=== PATIENT | female | born 1975 | race African-American/Black ===

== ENCOUNTER → 2017-08-01 | Outpatient (CLI) | payer SELFPAY ==
[2017-08-01 19:19] LABS: ABSOLUTE LYMPHOCYTES (AUTO) 3.5 10^3/uL (0.5-4.7); ABSOLUTE MONOCYTES (AUTO) 0.5 10^3/uL (0.1-1.4); ABSOLUTE NEUT (AUTO) 1.7 10^3/uL (1.7-8.2); BASOPHILS % (AUTO) 0.7 % (0-2); EOSINOPHILS % (AUTO) 0.3 % (0-6); HEMATOCRIT 31.4 % (36.0-47.0); HEMOGLOBIN 10.8 g/dL (12.0-15.5); LYMPHOCYTES % (AUTO) 60.4 % (13-45); MEAN CORPUSCULAR HEMOGLOBIN 22.9 pg (27.0-33.4); MEAN CORPUSCULAR HGB CONC 34.3 g/dL (32.0-36.0); MEAN CORPUSCULAR VOLUME 67 fl (80-97); MONOCYTES % (AUTO) 9.5 % (3-13); RED BLOOD COUNT 4.71 10^6/uL (3.72-5.28); RED CELL DISTRIBUTION WIDTH 17.9 % (11.5-14.0); SEGMENTED NEUTROPHILS % (AUTO) 29.1 % (42-78); WHITE BLOOD COUNT 5.7 10^3/uL (4.0-10.5)
== END ==
LOC: LAB 18:57
PROVIDERS: ATTEND Nurse Practitioner Acute Care
DX: R05 Cough (principal); Z86.2 Personal history of diseases of the blood and blood-forming organs and certain disorders involving the immune mechanism
CPT/HCPCS: 36415; 85025

== ENCOUNTER 2018-01-13 11:44 | Inpatient (IN) | payer SELFPAY ==
--- NOTE | 2018-01-13 13:40 | ER Document Report ---
ED Medical Screen (RME) - General Chief Complaint: Shortness Of Breath Stated Complaint: COUGH/CONGESTION Time Seen by Provider: 01/13/18 13:36 TRAVEL OUTSIDE OF THE [place] IN LAST 30 DAYS: No - HPI Notes: 01/13/18 13:37 Patient is a 42-year-old female with a history of asthma who presents to the ED complaining of a cough for 6 months, shortness of breath for 3 months, and bilateral lower extremity swelling 1 month. Patient states that she has been seen by an word processing specialist who had her on different inhalers with minimal relief. Patient states that she is scheduled to see a network intern on February 05 locally, but does not want to wait that long. Patient is not currently on any fluid pills. She is not on any blood thinners. She denies any smoking, IV drug use, prolonged immobilization, previous DVT/PE, or other significant cardiac history. Denies any headache, fever, neck pain, URI, sore throat, chest pain, palpitations, syncope, abdominal pain, nausea/vomiting/diarrhea, urinary retention, dysuria, hematuria, loss of control of bowel or bladder, numbness/tingling, saddle anesthesia, muscle paralysis/weakness, or rash. I have treated and performed a rapid initial assessment of this patient. A comprehensive ED assessment and evaluation of the patient, analysis of test results and completion of medical decision making process will be conducted by additional ED providers. PHYSICAL EXAMINATION: GENERAL: Well-appearing, well-nourished and in no acute distress. A&Ox4. Answers questions appropriately. LUNGS: Breath sounds clear to auscultation bilaterally and equal. No wheezes rales or rhonchi. HEART: Regular rate and rhythm without murmurs, rubs, gallops. Extremities: 1-2+ pitting edema b/l NEUROLOGICAL: Normal speech, normal gait. PSYCH: Normal mood, normal affect. - Related Data Allergies/Adverse Reactions: amoxicillin Allergy (Verified 01/13/18 11:48) Past Medical History - Social History Chew tobacco use (# tins/day): No Frequency of alcohol use: None Drug Abuse: None Pulmonary Medical History: Reports: Hx Asthma, Hx Bronchitis Renal/ Medical History: Denies: Hx Peritoneal Dialysis Physical Exam - Vital signs Vitals: Temp Pulse Resp BP Pulse Ox 98.1 F 129 H 15 116/90 H 100 01/13/18 11:58 01/13/18 11:58 01/13/18 11:58 01/13/18 11:58 01/13/18 11:58 Course - Vital Signs Vital signs: Temp Pulse Resp BP Pulse Ox 98.1 F 129 H 15 116/90 H 100 01/13/18 11:58 01/13/18 11:58 01/13/18 11:58 01/13/18 11:58 01/13/18 11:58
[2018-01-13 14:20] LABS: ABSOLUTE LYMPHOCYTES (AUTO) 1.9 10^3/uL (0.5-4.7); ABSOLUTE MONOCYTES (AUTO) 0.3 10^3/uL (0.1-1.4); ABSOLUTE NEUT (AUTO) 3.9 10^3/uL (1.7-8.2); BASOPHILS % (AUTO) 0.7 % (0-2); HEMATOCRIT 35.7 % (36.0-47.0); HEMOGLOBIN 11.2 g/dL (12.0-15.5); MEAN CORPUSCULAR HEMOGLOBIN 21.1 pg (27.0-33.4); MEAN CORPUSCULAR HGB CONC 31.5 g/dL (32.0-36.0); MEAN CORPUSCULAR VOLUME 67 fl (80-97); MONOCYTES % (AUTO) 5.6 % (3-13); RED BLOOD COUNT 5.34 10^6/uL (3.72-5.28); RED CELL DISTRIBUTION WIDTH 18.9 % (11.5-14.0); SEGMENTED NEUTROPHILS % (AUTO) 62.7 % (42-78); TOTAL CELLS COUNTED % (AUTO) 100 %; WHITE BLOOD COUNT 6.3 10^3/uL (4.0-10.5)
[2018-01-13 14:31] LABS: ALANINE AMINOTRANSFERASE 87 U/L (9-52); ALKALINE PHOSPHATASE 60 U/L (38-126); ANION GAP 11 (5-19); ASPARTATE AMINO TRANSFERASE 117 U/L (14-36); BILIRUBIN,DIRECT 0.8 mg/dL (0.0-0.4); BILIRUBIN,TOTAL 3.6 mg/dL (0.2-1.3); BLOOD UREA NITROGEN 32 mg/dL (7-20); CALCIUM 8.6 mg/dL (8.4-10.2); CARBON DIOXIDE 17 mmol/L (22-30); CHLORIDE 112 mmol/L (98-107); CREATINE KINASE 194 U/L (30-135); GLUCOSE 131 mg/dL (75-110); POTASSIUM 4.6 mmol/L (3.6-5.0); TOTAL PROTEIN 7.4 g/dL (6.3-8.2)
[2018-01-13 14:43] LABS: CREATINE KINASE MB 1.86 ng/mL (<4.55); TROPONIN I 0.031 ng/mL
[2018-01-13 14:50] LABS: PLATELET COUNT 116 10^3/uL (150-450)
--- NOTE | 2018-01-13 15:04 | RADIOLOGY REPORT (SQ) ---
EXAM DESCRIPTION: CHEST PA/LAT COMPLETED DATE/TIME: 01/13/2018 2:50 pm REASON FOR STUDY: sob COMPARISON: None. NUMBER OF VIEWS: Two view. TECHNIQUE: Frontal and lateral radiographic views of the chest acquired. LIMITATIONS: None. FINDINGS: LUNGS AND PLEURA: No opacities, masses or pneumothorax. No pleural effusion. MEDIASTINUM AND HILAR STRUCTURES: No masses. No contour abnormalities. HEART AND VASCULAR STRUCTURES: Heart enlarged without failure. Prominence of the pulmonary artery. Aorta normal for age. BONES: No acute findings. HARDWARE: None in the chest. OTHER: No other significant finding. IMPRESSION: CARDIAC ENLARGEMENT WITHOUT FAILURE. PROMINENCE OF THE MAIN PULMONARY ARTERY. THIS CAN BE SEEN WITH PULMONARY VALVE DISEASE. TECHNICAL DOCUMENTATION: JOB ID: [id number] [employer]- All Rights Reserved Reading location - IP/workstation name: [email or web address]
--- NOTE | 2018-01-13 16:39 | ER Document Report ---
ED General - General TRAVEL OUTSIDE OF THE [place] IN LAST 30 DAYS: No <NEHA HIGGINS - Last Filed: 01/13/18 19:03> <TONO DOWNEY - Last Filed: 01/13/18 21:32> <JUSTIN CM - Last Filed: 01/15/18 04:04> - General Chief Complaint: Shortness Of Breath Stated Complaint: COUGH/CONGESTION Time Seen by Provider: 01/13/18 13:36 - HPI Notes: Patient is a 42-year-old female with a history of asthma & GERD who presents to the ED complaining of a cough for 6 months, shortness of breath for 3 months, and bilateral lower extremity swelling 1 month. Pt has also had occ n/v over the past 3 weeks with flare ups of her GERD. Patient states that she has been seen by an project management it specialist who had her on different inhalers with minimal relief. Patient states that she is scheduled to see a general counselor on February 05, but does not want to wait that long. Patient is not currently on any fluid pills. She is not on any blood thinners. Patient states that she is eating and drinking without any difficulties. She is urinating normally and having normal bowel movements. She denies any significant cardiac history. She denies any smoking, IV drug use, prolonged immobilization, previous DVT/PE, or other significant cardiac history. Denies any headache, fever, neck pain, URI, sore throat, chest pain, palpitations, syncope, abdominal pain, nausea/ vomiting/diarrhea, urinary retention, dysuria, hematuria, loss of control of bowel or bladder, numbness/tingling, saddle anesthesia, muscle paralysis/ weakness, or rash. (NEHA HIGGINS) - Related Data Allergies/Adverse Reactions: amoxicillin Allergy (Verified 01/13/18 11:48) ciprofloxacin [From Cipro] Adverse Reaction (Verified 01/14/18 02:45) Nausea Past Medical History - Social History Smoking Status: Never Smoker Chew tobacco use (# tins/day): No Frequency of alcohol use: None Drug Abuse: None Family History: Reviewed & Not Pertinent Patient has suicidal ideation: No Patient has homicidal ideation: No Pulmonary Medical History: Reports: Hx Asthma, Hx Bronchitis Renal/ Medical History: Denies: Hx Peritoneal Dialysis <NEHA HIGGINS - Last Filed: 01/13/18 19:03> Review of Systems - Review of Systems -: Yes All other systems reviewed and negative <NEHA HIGGINS - Last Filed: 01/13/18 19:03> Physical Exam <NEHA HIGGINS - Last Filed: 01/13/18 19:03> <LAURENGRIFFINTONO - Last Filed: 01/13/18 21:32> <JUSTIN CM - Last Filed: 01/15/18 04:04> - Vital signs Vitals: Temp Pulse Resp BP Pulse Ox 98.1 F 129 H 15 116/90 H 100 01/13/18 11:58 01/13/18 11:58 01/13/18 11:58 01/13/18 11:58 01/13/18 11:58 - Notes Notes: PHYSICAL EXAMINATION: GENERAL: Well-appearing, well-nourished and in no acute distress. A&Ox4. Answers questions appropriately. HEAD: Atraumatic, normocephalic. EYES: Pupils equal round and reactive to light, extraocular movements intact, sclera anicteric, conjunctiva are normal. ENT: Nares patent and without discharge. oropharynx clear without exudates. No tonsilar hypertrophy or erythema. Moist mucous membranes. NECK: Normal range of motion, supple without lymphadenopathy LUNGS: Breath sounds clear to auscultation bilaterally and equal. No wheezes rales or rhonchi. HEART: Regular rate and rhythm without murmurs, rubs, gallops. ABDOMEN: Soft, nontender, nondistended abdomen. No guarding, no rebound. No masses appreciated. Normal bowel sounds present. No CVA tenderness bilaterally. Musculoskeletal: FROM to passive/active. Strength 5+/5. Extremities: 1-2+ pitting edema LE's b/l. Peripheral pulses 2+. Capillary refill less than 3 seconds. NEUROLOGICAL: Cranial nerves grossly intact. Normal speech, normal gait. Normal sensory, motor exams PSYCH: Normal mood, normal affect. SKIN: Warm, Dry, normal turgor, no rashes or lesions noted. (NEHA HIGGINS) Course - Laboratory Result Diagrams: 01/13/18 14:04 01/13/18 14:04 <NEHA HIGGINS - Last Filed: 01/13/18 19:03> - Laboratory Result Diagrams: 01/13/18 14:04 01/13/18 14:04 <TONO DOWNEY - Last Filed: 01/13/18 21:32> - Laboratory Result Diagrams: 01/14/18 03:21 01/14/18 03:21 <JUSTIN CM - Last Filed: 01/15/18 04:04> - Re-evaluation Re-evalutation: 01/13/18 18:51 CBC showed only a mild anemia. BNP 7290 (no previous). CMP revealed elevated bili and mildly elevated LFT's. Right upper quadrant ultrasound was negative. Lipase is unremarkable. See chest x-ray report. I did review this case with Dr. Larkin who would like a CTA of the chest performed for possible long- standing pulmonary embolism prior to admission. Pt is in agreement with plan. Care reviewed and transferred to Tono Gimenez PA-C. (NEHA HIGGINS) 01/13/18 21:25 Patient has had completion of the CTA. CTA shows cardiomegaly, small pericardial effusion of only 10 mm, no PE, no acute abnormality is otherwise. Patient does become short of breath with ambulation, at rest she is not in respiratory distress, hypoxic. I called and spoke with Dr. Larkin again because he had initially requested a CTA, he recommends that the hospitalist be consulted for admission. 01/13/18 21:[address] Arenas, internal medicine, she will see the patient for admission; patient stating she is feeling nauseated and went cold and generally worse after the contrast imaging, Zofran ordered, patient states understanding and agreement with admission. (TONO DOWNEY) - Vital Signs Vital signs: Temp Pulse Resp BP Pulse Ox 97.4 F 103 H 18 97/79 L 100 01/14/18 23:01 01/14/18 23:58 01/14/18 23:58 01/14/18 23:58 01/14/18 23:58 - Laboratory Laboratory results interpreted by me: 01/13/18 01/13/18 01/13/18 14:04 14:04 14:04 RBC 5.34 H Hgb 11.2 L Hct 35.7 L MCV 67 L MCH 21.1 L MCHC 31.5 L RDW 18.9 H Plt Count 116 L Chloride 112 H Carbon Dioxide 17 L BUN 32 H Est GFR (Non-Af Amer) 49 L Glucose 131 H Total Bilirubin 3.6 H Direct Bilirubin 0.8 H AST 117 H ALT 87 H Creatine Kinase 194 H NT-Pro-B Natriuret Pep 7290 H Albumin 3.0 L Urine Protein Urine Blood Urine Urobilinogen Ur Leukocyte Esterase 01/13/18 21:20 RBC Hgb Hct MCV MCH MCHC RDW Plt Count Chloride Carbon Dioxide BUN Est GFR (Non-Af Amer) Glucose Total Bilirubin Direct Bilirubin AST ALT Creatine Kinase NT-Pro-B Natriuret Pep Albumin Urine Protein 30 H Urine Blood LARGE H Urine Urobilinogen 2.0 H Ur Leukocyte Esterase MODERATE H Discharge <NEHA HIGGINS - Last Filed: 01/13/18 19:03> - Discharge Admitting Provider: Hospitalist Unit Admitted: Telemetry <TONO DOWNEY - Last Filed: 01/13/18 21:32> <JUSTIN CM - Last Filed: 01/15/18 04:04> - Discharge Clinical Impression: Swelling of both lower extremities, Dyspnea on exertion Condition: Stable Disposition: ADMITTED INPATIENT Cosign for MLP Consult - Cosign -: I was personally available for consultation in the Emergency Department and serving as supervising physician for the MLP. Cosign for MLP: Naina/Yara <JUSTIN CM - Last Filed: 01/15/18 04:04>
[2018-01-13 17:20] LABS: LIPASE 119.1 U/L (23-300)
--- NOTE | 2018-01-13 18:02 | RADIOLOGY REPORT (SQ) ---
EXAM DESCRIPTION: U/S ABDOMEN LIMITED W/O DOP COMPLETED DATE/TIME: 01/13/2018 5:43 pm REASON FOR STUDY: n/v, elevated bili COMPARISON: None. TECHNIQUE: Dynamic and static grayscale images acquired of the abdomen and recorded on PACS. Additio nal selected color Doppler and spectral images recorded. LIMITATIONS: Study is limited due to overlying bowel gas P FINDINGS: PANCREAS: The pancreas was incompletely visualized due to overlying bowel gas. Visualized portions of the pancreatic head showed no pancreatic masses. LIVER: No masses. Echotexture normal. LIVER VASCULATURE: There is questionable to and fro flow within the portal vein and the possibility o f developing portal hypertension cannot be excluded. GALLBLADDER: No stones. Normal wall thickness. No pericholecystic fluid. ULTRASOUND-DETECTED VALADEZ'S SIGN: Negative. INTRAHEPATIC DUCTS AND COMMON DUCT: CBD and intrahepatic ducts normal caliber. No filling defects. INFERIOR VENA CAVA: Normal flow. AORTA: No aneurysm. RIGHT KIDNEY: Normal size. Normal echogenicity. No solid or suspicious masses. No hydronephrosis. No calcifications. PERITONEAL AND RIGHT PLEURAL SPACE: No ascites or effusions. OTHER: No other significant findings. IMPRESSION: Somewhat limited study as noted above. No gallstones are identified. No dilated bile d ucts are identified. There is questionable to and fro flow within the portal vein and the possibilit y of developing portal hypertension cannot be excluded. Other findings as noted above TECHNICAL DOCUMENTATION: JOB ID: [id number] [employer]- All Rights Reserved Reading location - IP/workstation name: [email or web address]
--- NOTE | 2018-01-13 18:59 | EKG REPORT ---
SEVERITY:- ABNORMAL ECG - SINUS TACHYCARDIA PROBABLE LEFT ATRIAL ABNORMALITY BORDERLINE RIGHT AXIS DEVIATION NONSPECIFIC ST-T CHANGES- INFERIOR LEADS : Confirmed by: Fred Jones MD 13-Jan-2018 18:58:09
[2018-01-13] MEDS ORDERED: FUROSEMIDE INJ/PF 20 MG/2 ML SDV IV ONE (19:10)
[2018-01-13] MEDS ORDERED: FAMOTIDINE 20 MG TABLET PO ONE (20:32)
--- NOTE | 2018-01-13 21:16 | RADIOLOGY REPORT (SQ) ---
EXAM DESCRIPTION: CTA CHEST COMPLETED DATE/TIME: 01/13/2018 9:01 pm REASON FOR STUDY: SOB COMPARISON: None. TECHNIQUE: CT scan of the chest performed using helical scanning technique with dynamic intravenous contrast injection. Images reviewed with lung, soft tissue and bone windows. Reconstructed coronal and sagittal MPR images reviewed. Additional 3 dimensional post-processing performed to develop Maximal Intensity Projection images (MA P). All images stored on PACS. All CT scanners at this facility use dose modulation, iterative reconstruction, and/or weight based d osing when appropriate to reduce radiation dose to as low as reasonably achievable (ALARA). [facility]: Dose Right [facility]: CareDose [facility]: Dose Right [facility]: Teradose 4D [facility]: YOOWALK CONTRAST TYPE AND DOSE: contrast/concentration: Isovue 370.00 mg/ml; Total Contrast Delivered: 70.0 ml; Total Saline Delivered: 70.0 ml Contrast bolus optimized for the pulmonary arteries. Not diagnostic for the aorta. RENAL FUNCTION: BUN 32 creatinine 1.2 RADIATION DOSE: CT Rad equipment meets quality standard of care and radiation dose reduction techniq ues were employed. CTDIvol: 14.3 - 19.8 mGy. DLP: 504 mGy-cm. . LIMITATIONS: None. FINDINGS: LUNGS AND PLEURA: There is a 7 mm subpleural nodule in the right lung on image 47. AORTA AND GREAT VESSELS: No aneurysm. Contrast bolus not optimized for the aorta. HEART: There is a pericardial effusion about 10 mm in depth. No significant coronary artery calcifica tions. PULMONARY ARTERIES: No emboli visualized in the main pulmonary arteries or the segmental branches. HILAR AND MEDIASTINAL STRUCTURES: No identified masses or abnormal nodes. HARDWARE: None in the chest. UPPER ABDOMEN: No significant findings. Limited exam. THYROID AND OTHER SOFT TISSUES: No masses. No adenopathy. BONES: No acute or significant finding. 3D MIPS: Confirm above findings. OTHER: No other significant finding. IMPRESSION: 1. There is no evidence of pulmonary emboli. 2. There is a pericardial effusion. COMMENT: Quality ID # [id number]: Final reports with documentation of one or more dose reduction techniques (e.g., Automated exposure control, adjustment of the mA and/or kV according to patient size, use of iterative reconstruction technique) TECHNICAL DOCUMENTATION: JOB ID: [id number] [employer]- All Rights Reserved Reading location - IP/workstation name: [email or web address]
[2018-01-13] MEDS ORDERED: ONDANSETRON HCL INJ/PF 4 MG/2 ML SDV IV ONE (21:34)
[2018-01-13 21:42] LABS: APPEARANCE,URINE SLIGHTLY-CLOUDY; BILIRUBIN,URINE NEGATIVE (NEGATIVE); COLOR,URINE YELLOW; GLUCOSE, URINE NEGATIVE (NEGATIVE); KETONES,URINE NEGATIVE (NEGATIVE); LEUKOCYTE ESTERASE,URINE MODERATE (NEGATIVE); NITRITE,URINE NEGATIVE (NEGATIVE); PROTEIN,URINE 30 mg/dL (NEGATIVE); URINE SPECIFIC GRAVITY 1.019
[2018-01-13] MEDS ORDERED: ALBUTEROL SULFATE 0.083% NEB 2.5 MG/3 ML AMPUL NEB PRN (21:57)
[2018-01-13] MEDS ORDERED: PROMETHAZINE HCL INJ 25 MG/1 ML VIAL IV PRN (21:57)
--- NOTE | 2018-01-14 03:17 | PDOC H&P ---
History of Present Illness Admission Date/PCP: MILKA KITCHEN MD Patient complains of: Worsening dyspnea on exertion for the last month or so. Increased pedal edema bilaterally for the last 2 weeks. History of Present Illness: JUANITA SHARIF is a 42 year old female of asthma and GERD was admitted with above-mentioned complaints. According to the patient, she started having chronic cough about 6 months ago so she was referred to pulmonology. She was diagnosed with asthma and was started on Q-pearl twice daily and rescue inhaler with improvement in her symptoms. However, she was unable to afford it for some time so she was switched to a different inhaler with worsening of her symptoms. She is finally back on Qvar with rescue inhaler. But despite adequate asthma treatment, she was having worsening dyspnea on exertion since October 2017 ( especially last month ago). She said that she feels mucus buildup and subsequent nausea. She sometimes would vomit and sometimes she would have dry heaves which prevents her from having a good appetite. She also had left ankle swelling for about 6 weeks and bilateral leg swelling for the last 2 weeks. She has 3 pillow orthopnea and PND and her exercise tolerance is very limited by her shortness of breath. She denies any chest pain per se but complains of palpitations, no diaphoresis or syncope. She apparently was seen at her PCPs office last week where a chest x-ray was done. She was referred to see cardiology on 02/05/2018. However, since her symptoms are persistent and worsening, she decided to come to the hospital for further management and treatment. In the ED, her temperature was 98.1, heart rate 129, respiratory rate 15, blood pressure 116/90 with oxygen saturation of 100% on room air. Her WBC was 6.3 and her hemoglobin was 11.2. Her initial troponin was 0.031 with a proBNP of 7290. A chest x-ray was done which showed cardiomegaly without failure and prominent main pulmonary arteries which could be seen in pulmonary valve disease. A CAT scan angiogram of the chest was done which showed no PE but she had small pericardial effusion and 7 mm subpleural nodule on the right side. She received 40 mg IV Lasix 1 with no significant improvement in her breathing. Past Medical History Medical History: Other - According to the patient and based on previous records. Pulmonary Medical History: Reports: Asthma, Bronchitis GI Medical History: Reports: Gastroesophageal Reflux Disease Past Surgical History Past Surgical History: Reports: Other - Adenoidectomy and 1. Social History Smoking Status: Never Smoker Frequency of Alcohol Use: None Hx Recreational Drug Use: No - Advance Directive Resuscitation Status: Full Code Family History Parental Family History Reviewed: Yes - Father: Diabetes: Paternal grandmother CAD and diabetes. Children Family History Reviewed: No Sibling(s) Family History Reviewed.: Yes Medication/Allergy Allergies/Adverse Reactions: amoxicillin Allergy (Verified 01/13/18 11:48) ciprofloxacin [From Cipro] Adverse Reaction (Verified 01/14/18 02:45) Nausea Review of Systems ROS unobtainable: Other - Pertinent positives and negatives as detailed in the HPI. The patient denied any abdominal pain, diarrhea constipation or any urinary symptoms or focal deficits but she said that she felt generally weak. Physical Exam Vital Signs: Temp Pulse Resp BP Pulse Ox 98.1 F 129 H 31 H 112/89 H 98 01/13/18 11:58 01/13/18 11:58 01/13/18 18:01 01/13/18 18:01 01/13/18 18:01 Intake & Output 01/12/18 01/13/18 01/14/18 06:59 06:59 06:59 Weight 71.5 kg General appearance: PRESENT: no acute distress, thin Head exam: PRESENT: atraumatic, normocephalic Eye exam: PRESENT: conjunctiva pink, PERRLA. ABSENT: scleral icterus Mouth exam: PRESENT: moist Neck exam: PRESENT: full ROM, JVD Respiratory exam: PRESENT: decreased breath sounds, rhonchi. ABSENT: rales, wheezes Cardiovascular exam: PRESENT: +S1, +S2, tachycardia Pulses: PRESENT: normal dorsalis pedis pul GI/Abdominal exam: PRESENT: normal bowel sounds, soft. ABSENT: distended, rebound, tenderness Rectal exam: PRESENT: deferred Extremities exam: PRESENT: pedal edema, +2 edema - Bilateral lower extremities. Neurological exam: PRESENT: alert, altered, awake, oriented to person, oriented to place, oriented to time, oriented to situation, motor sensory deficit - Numbness bilateral legs. Skin exam: PRESENT: dry, warm. ABSENT: erythema, rash Results Laboratory Results: 01/13/18 14:04 01/13/18 14:04 01/13/18 01/13/18 01/13/18 14:04 14:04 14:04 WBC 6.3 RBC 5.34 H Hgb 11.2 L Hct 35.7 L MCV 67 L MCH 21.1 L MCHC 31.5 L RDW 18.9 H Plt Count 116 L Seg Neutrophils % 62.7 Lymphocytes % 31.0 Monocytes % 5.6 Eosinophils % 0.0 Basophils % 0.7 Absolute Neutrophils 3.9 Absolute Lymphocytes 1.9 Absolute Monocytes 0.3 Absolute Eosinophils 0.0 Absolute Basophils 0.0 Sodium 140.0 Potassium 4.6 Chloride 112 H Carbon Dioxide 17 L Anion Gap 11 BUN 32 H Creatinine 1.20 Est GFR ( Amer) > 60 Est GFR (Non-Af Amer) 49 L Glucose 131 H Calcium 8.6 Total Bilirubin 3.6 H AST 117 H ALT 87 H Alkaline Phosphatase 60 Total Protein 7.4 Albumin 3.0 L Lipase 119.1 Serum HCG, Qual Urine Color Urine Appearance Urine pH Ur Specific [place] Urine Protein Urine Glucose (UA) Urine Ketones Urine Blood Urine Nitrite Ur Leukocyte Esterase Urine WBC (Auto) Urine RBC (Auto) 01/13/18 01/13/18 14:04 21:20 WBC RBC Hgb Hct MCV MCH MCHC RDW Plt Count Seg Neutrophils % Lymphocytes % Monocytes % Eosinophils % Basophils % Absolute Neutrophils Absolute Lymphocytes Absolute Monocytes Absolute Eosinophils Absolute Basophils Sodium Potassium Chloride Carbon Dioxide Anion Gap BUN Creatinine Est GFR ( Amer) Est GFR (Non-Af Amer) Glucose Calcium Total Bilirubin AST ALT Alkaline Phosphatase Total Protein Albumin Lipase Serum HCG, Qual NEGATIVE Urine Color YELLOW Urine Appearance SLIGHTLY-CLOUDY Urine pH 5.0 Ur Specific [place] 1.019 Urine Protein 30 H Urine Glucose (UA) NEGATIVE Urine Ketones NEGATIVE Urine Blood LARGE H Urine Nitrite NEGATIVE Ur Leukocyte Esterase MODERATE H Urine WBC (Auto) 11 Urine RBC (Auto) 25 01/13/18 01/13/18 14:04 14:04 Creatine Kinase 194 H CK-MB (CK-2) 1.86 Troponin I 0.031 NT-Pro-B Natriuret Pep 7290 H EKG Comments: EKG: Sinus rhythm, ventricular rate 125, axis +100, QTc prolongation, no acute changes. No previous EKG to compare. Impressions: Chest X-Ray 01/13/18 13:37 IMPRESSION: CARDIAC ENLARGEMENT WITHOUT FAILURE. PROMINENCE OF THE MAIN PULMONARY ARTERY. THIS CAN BE SEEN WITH PULMONARY VALVE DISEASE. Abdomen Ultrasound 01/13/18 16:45 IMPRESSION: Somewhat limited study as noted above. No gallstones are identified. No dilated bile ducts are identified. There is questionable to and fro flow within the portal vein and the possibility of developing portal hypertension cannot be excluded. Other findings as noted above Chest/Abdomen CTA 01/13/18 18:50 IMPRESSION: 1. There is no evidence of pulmonary emboli. 2. There is a pericardial effusion. Assessment & Plan - Diagnosis (1) Acute on chronic diastolic CHF (congestive heart failure), NYHA class 4 Is this a current diagnosis for this admission?: Yes Plan: And/or cardiomyopathy and possible pulmonary hypertension. CXR and CAT scan angiogram of the chest reviewed. Will continue to cycle cardiac enzymes and check an echocardiogram in a.m. Will give 60 mg IV Lasix twice daily with strict I's and O's. Of note, the patient said that her only in 2014 was uneventful. Cardiology has been consulted by the ED physician. (2) Asthma Qualifiers: Asthma severity: unspecified severity Asthma persistence: unspecified Asthma complication type: unspecified Qualified Code(s): J45.909 - Unspecified asthma, uncomplicated Is this a current diagnosis for this admission?: Yes Plan: Will start Symbicort with albuterol nebulizer as needed. (3) Sinus tachycardia Is this a current diagnosis for this admission?: Yes Plan: Secondary to #1. Will check TSH (4) Pulmonary nodule Is this a current diagnosis for this admission?: Yes Plan: 7 Millimeter subpleural nodule in the right lung on CAT scan angiogram of the chest. The patient is low risk as she is a non-smoker. Further imaging studies depends on whether or not she had a previous CAT scan in the past for comparison. She can follow-up with pulmonary as outpatient. (5) Pericardial effusion Is this a current diagnosis for this admission?: Yes Plan: Small with no evidence of any temponade. We will follow-up echocardiogram. Cardiology has already been consulted - Time Time Spent: Greater than 70 Minutes Anticipated discharge: Home - Inpatient Certification Based on my medical assessment, after consideration of the patient's comorbidities, presenting symptoms, or acuity I expect that the services needed warrant INPATIENT care.: Yes I certify that my determination is in accordance with my understanding of Medicare's requirements for reasonable and necessary INPATIENT services [42 CFR 412.3e].: Yes
[2018-01-14 03:44] LABS: HEMATOCRIT 33.1 % (36.0-47.0); HEMOGLOBIN 10.6 g/dL (12.0-15.5); MEAN CORPUSCULAR HEMOGLOBIN 21.4 pg (27.0-33.4); MEAN CORPUSCULAR VOLUME 67 fl (80-97); RED BLOOD COUNT 4.97 10^6/uL (3.72-5.28); RED CELL DISTRIBUTION WIDTH 19.1 % (11.5-14.0); WHITE BLOOD COUNT 6.8 10^3/uL (4.0-10.5)
[2018-01-14 03:46] LABS: PLATELET COUNT 85 10^3/uL (150-450)
[2018-01-14 03:58] LABS: ALANINE AMINOTRANSFERASE 94 U/L (9-52); ALBUMIN 2.7 g/dL (3.5-5.0); ALKALINE PHOSPHATASE 59 U/L (38-126); ANION GAP 10 (5-19); ASPARTATE AMINO TRANSFERASE 124 U/L (14-36); BILIRUBIN,DIRECT 1.1 mg/dL (0.0-0.4); BILIRUBIN,TOTAL 3.5 mg/dL (0.2-1.3); BLOOD UREA NITROGEN 32 mg/dL (7-20); CALCIUM 8.4 mg/dL (8.4-10.2); CARBON DIOXIDE 16 mmol/L (22-30); CHLORIDE 115 mmol/L (98-107); GLUCOSE 128 mg/dL (75-110); POTASSIUM 4.2 mmol/L (3.6-5.0); SODIUM 141.2 mmol/L (137-145); TOTAL PROTEIN 7.1 g/dL (6.3-8.2)
[2018-01-14] MEDS ORDERED: FUROSEMIDE INJ/PF 100 MG/10 ML SDV IV SCH (10:00)
[2018-01-14] MEDS: BUDESONIDE/FORMOTEROL 160-4.5 MCG 60 PUFF/6 GM MDI IH SCH ×2 (10:16→21:26)
[2018-01-14] MEDS: ACETAMINOPHEN 325 MG TABLET PO PRN (10:17)
--- NOTE | 2018-01-14 11:19 | PDOC PROGRESS REPORT ---
Subjective Progress Note for:: 01/14/18 Subjective:: The patient is a 42-year-old female with a history of asthma and GERD who was admitted on 01/13/18 for worsening dyspnea and bilateral lower extremity edema over the last several weeks. The patient is seen on morning rounds. She is resting comfortably on room air. She denies a history of hypertension, CHF, liver or kidney disease. She does report that her breathing has improved following IV Lasix overnight. Her lower leg edema is essentially unchanged. Her primary complaint today is a nonproductive cough. We did discuss her liver enzymes; the patient denies recent alcohol intake. 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 She denies a known exposure to hepatitis. She has no new questions at this time and expresses appreciation for the thorough workup she is having done. Reason For Visit: CHF EXACERBATION Physical Exam Vital Signs: Temp Pulse Resp BP Pulse Ox 97.9 F 68 17 110/85 95 01/14/18 07:47 01/14/18 07:47 01/14/18 07:47 01/14/18 07:47 01/14/18 07:47 Intake & Output 01/13/18 01/14/18 01/15/18 06:59 06:59 06:59 Intake Total 320 Balance 320 Weight 68.4 kg General appearance: PRESENT: no acute distress, well-developed, well-nourished, other - Overweight Head exam: PRESENT: atraumatic, normocephalic Eye exam: PRESENT: conjunctiva pink, EOMI, PERRLA. ABSENT: scleral icterus Ear exam: PRESENT: normal external ear exam Mouth exam: PRESENT: moist, tongue midline Neck exam: ABSENT: carotid bruit, JVD, lymphadenopathy, thyromegaly Respiratory exam: PRESENT: clear to auscultation bakari, symmetrical, unlabored. ABSENT: rales, rhonchi, wheezes Cardiovascular exam: PRESENT: RRR, +S1, +S2. ABSENT: diastolic murmur, rubs, systolic murmur Pulses: PRESENT: normal dorsalis pedis pul Vascular exam: PRESENT: normal capillary refill GI/Abdominal exam: PRESENT: normal bowel sounds, soft. ABSENT: distended, guarding, mass, organolmegaly, rebound, tenderness Rectal exam: PRESENT: deferred Extremities exam: PRESENT: full ROM, +1 edema - Non-pitting bilateral lower extremity edema. ABSENT: calf tenderness, clubbing, pedal edema Neurological exam: PRESENT: alert, awake, oriented to person, oriented to place , oriented to time, oriented to situation, CN II-XII grossly intact. ABSENT: motor sensory deficit Psychiatric exam: PRESENT: appropriate affect, normal mood. ABSENT: homicidal ideation, suicidal ideation Skin exam: PRESENT: dry, intact, warm. ABSENT: cyanosis, rash Results Laboratory Results: 01/14/18 03:21 01/14/18 03:21 01/14/18 01/14/18 01/14/18 03:21 03:21 03:21 WBC 6.8 RBC 4.97 Hgb 10.6 L Hct 33.1 L MCV 67 L MCH 21.4 L MCHC 32.0 RDW 19.1 H Plt Count 85 L Sodium 141.2 Potassium 4.2 Chloride 115 H Carbon Dioxide 16 L Anion Gap 10 BUN 32 H Creatinine 1.40 H Est GFR ( Amer) 50 L Est GFR (Non-Af Amer) 41 L Glucose 128 H Calcium 8.4 Magnesium 2.2 Total Bilirubin 3.5 H AST 124 H ALT 94 H Alkaline Phosphatase 59 Total Protein 7.1 Albumin 2.7 L TSH 01/14/18 03:21 WBC RBC Hgb Hct MCV MCH MCHC RDW Plt Count Sodium Potassium Chloride Carbon Dioxide Anion Gap BUN Creatinine Est GFR ( Amer) Est GFR (Non-Af Amer) Glucose Calcium Magnesium Total Bilirubin AST ALT Alkaline Phosphatase Total Protein Albumin TSH 1.12 01/14/18 03:21 Troponin I 0.045 Impressions: Chest X-Ray 01/13/18 13:37 IMPRESSION: CARDIAC ENLARGEMENT WITHOUT FAILURE. PROMINENCE OF THE MAIN PULMONARY ARTERY. THIS CAN BE SEEN WITH PULMONARY VALVE DISEASE. Abdomen Ultrasound 01/13/18 16:45 IMPRESSION: Somewhat limited study as noted above. No gallstones are identified. No dilated bile ducts are identified. There is questionable to and fro flow within the portal vein and the possibility of developing portal hypertension cannot be excluded. Other findings as noted above Chest/Abdomen CTA 01/13/18 18:50 IMPRESSION: 1. There is no evidence of pulmonary emboli. 2. There is a pericardial effusion. Assessment & Plan - Diagnosis (1) Acute on chronic diastolic CHF (congestive heart failure), NYHA class 4 Is this a current diagnosis for this admission?: Yes Plan: The patient was admitted with dyspnea and bilateral lower extremity edema that has been worsening over the previous several weeks. Chest x-ray reveals cardiac enlargement without failure. A prominent pulmonary artery which can be indicative of pulmonary valve disease was noted. CTA of the chest and abdomen demonstrated pericardial effusion, a 7 mm subpleural nodule to the right lung. No evidence of PE. ProBNP greater than 7000. Serial troponins are indeterminate, but increasing at this time. Patient was admitted to the medical floor on continuous cardiac telemetry. She did receive IV furosemide overnight with resolution of dyspnea; will hold on further diuresis secondary to worsening creatinine. Echocardiogram is pending. We will continue to trend troponins. Cardiology has been consulted; appreciate their evaluation recommendations. (2) Asthma Qualifiers: Asthma severity: unspecified severity Asthma persistence: unspecified Asthma complication type: unspecified Qualified Code(s): J45.909 - Unspecified asthma, uncomplicated Is this a current diagnosis for this admission?: Yes Plan: Continue Symbicort. Albuterol nebulizer treatments available as needed. (3) Pericardial effusion Is this a current diagnosis for this admission?: Yes Plan: A small, 10 mm, pericardial effusion was noted by CTA. No evidence of tamponade. Echocardiogram is pending Cardiology has been consulted. (4) Pulmonary nodule Is this a current diagnosis for this admission?: Yes Plan: A 7 mm subpleural nodule to the right lung was noted by CT TA. The patient is low risk as she is a non-smoker. She has had no previous CAT scans for comparison. Recommend follow-up with repeat imaging in approximately 6 months to evaluate stability. (5) Sinus tachycardia Is this a current diagnosis for this admission?: Yes Plan: Secondary to #1. TSH is normal. Remaining plan as above. (6) Elevated transaminase level Is this a current diagnosis for this admission?: Yes Plan: LFTs are trending upward. Abdominal ultrasound revealed possible developing portal hypertension. Patient does endorse chronic nausea and vomiting; will obtain hepatitis panel. (7) Acute kidney injury Is this a current diagnosis for this admission?: Yes Plan: Acute kidney injury; likely secondary to CHF exacerbation and possibly volume depletion as the creatinine worsened following contrasted imaging by and IV furosemide. As the patient's dyspnea has improved, will discontinue IV furosemide. We will avoid nephrotoxic medications. We will monitor with daily chemistry. - Time Time Spent with patient: 25-34 minutes Medications reviewed and adjusted accordingly: Yes Anticipated discharge: Home
[2018-01-14] MEDS ORDERED: DIGOXIN 0.25 MG TABLET PO ONE (12:30)
[2018-01-14] MEDS ORDERED: SPIRONOLACTONE 25 MG TABLET PO ONE (12:30)
[2018-01-14] MEDS ORDERED: CARVEDILOL 3.125 MG TABLET PO ONE (12:30)
[2018-01-14] MEDS: GUAIFENESIN SYRP 200 MG/10 ML UDC PO PRN ×2 (12:55→21:26)
--- NOTE | 2018-01-14 20:37 | PDOC CONSULTATION ---
Consultation Consult Date: 01/14/18 Attending physician:: ENRIQUE WINTER Consult reason:: Shortness of breath History of Present Illness Admission Date/PCP: 01/13/18 22:00 MILKA KITCHEN MD Patient complains of: Shortness of breath History of Present Illness: JUANITA SHARIF is a 42 year old female of asthma and GERD was admitted with above-mentioned complaints. According to the patient, she started having chronic cough about 6 months ago so she was referred to pulmonology. She was diagnosed with asthma and was started on Q-pearl twice daily and rescue inhaler with improvement in her symptoms. However, she was unable to afford it for some time so she was switched to a different inhaler with worsening of her symptoms. She is finally back on Qvar with rescue inhaler. But despite adequate asthma treatment, she was having worsening dyspnea on exertion since October 2017 ( especially last month ago). She said that she feels mucus buildup and subsequent nausea. She sometimes would vomit and sometimes she would have dry heaves which prevents her from having a good appetite. She also had left ankle swelling for about 6 weeks and bilateral leg swelling for the last 2 weeks. She has 3 pillow orthopnea and PND and her exercise tolerance is very limited by her shortness of breath. She denies any chest pain per se but complains of palpitations, no diaphoresis or syncope. She apparently was seen at her PCPs office last week where a chest x-ray was done. She was referred to see cardiology on 02/05/2018. However, since her symptoms are persistent and worsening, she decided to come to the hospital for further management and treatment. In the ED, her temperature was 98.1, heart rate 129, respiratory rate 15, blood pressure 116/90 with oxygen saturation of 100% on room air. Her WBC was 6.3 and her hemoglobin was 11.2. Her initial troponin was 0.031 with a proBNP of 7290. A chest x-ray was done which showed cardiomegaly without failure and prominent main pulmonary arteries which could be seen in pulmonary valve disease. A CAT scan angiogram of the chest was done which showed no PE but she had small pericardial effusion and 7 mm subpleural nodule on the right side. She received 40 mg IV Lasix 1 with no significant improvement in her breathing. This history was reviewed and confirmed. Patient denies any prior history of pulmonary embolism, blood clots in the legs are in the lungs. Patient also denied any congenital heart disease. Patient has shortness of breath on exertion for over 6 months. She has also noted pedal edema over the last several weeks. Past Medical History Pulmonary Medical History: Reports: Asthma, Bronchitis GI Medical History: Reports: Gastroesophageal Reflux Disease Past Surgical History Past Surgical History: Reports: Other - Adenoidectomy and 1. Social History Information Source: Patient Smoking Status: Never Smoker Frequency of Alcohol Use: None Hx Recreational Drug Use: No Drugs: None Hx Prescription Drug Abuse: No - Advance Directive Resuscitation Status: Full Code Surrogate healthcare decision maker:: Patient's mother is the surrogate decision-maker. Family History Family History: Reviewed & Not Pertinent Parental Family History Reviewed: Yes Children Family History Reviewed: Yes Sibling(s) Family History Reviewed.: Yes Medication/Allergy Home Medications: Albuterol Sulfate [Albuterol Sulfate 2.5mg/3 mL] 3 ml IH [id number] PRN 01/14/18 Albuterol Sulfate [Proair Respiclick] 2 puff IH Q3 01/14/18 Beclomethasone Dipropionate [Qvar] 1 inh IH BID PRN 01/14/18 Hydroxyzine HCl [Atarax 25 mg Tablet] 25 mg PO DAILY 01/14/18 Triamcinolone Acetonide [Aristocort 0.1% Ointment 15 gm] 1 applic TP DAILY 01/14 Allergies/Adverse Reactions: amoxicillin Allergy (Verified 01/13/18 11:48) ciprofloxacin [From Cipro] Adverse Reaction (Verified 01/14/18 02:45) Nausea Review of Systems Review of Systems: Please see history of present illness and past medical history as wall. Constitutional: No fever or chills reported. Head : No recent chronic headaches, recent head injury. Eyes: No recent eye pain, diplopia, redness, discharge, acute visual changes. Ears: No recent chronic ear pain, acute hearing loss, ear discharge. Oral cavity: No recent ulcerations, bleeding, oral cavity discomfort. Neck: No recent acute neck pain reported. Hematologic: No recent easy bruising or bleeding or hematologic malignancy reported. Lymphatic: No recent lymphatic malignancy, chronic lymphadenopathy reported yet Cardiovascular system review: See history of present illness. Respiratory system review: No recent chronic cough, hemoptysis, blood clots in the lungs reported. Shortness of breath on exertion. Leg edema noted. Gastrointestinal system review: Negative for any recent acute or chronic abdominal pain, hematemesis, melena, recent change in bowel habits. Genitourinary system review: No recent acute or chronic hematuria, flank pain, UTI etc. reported. Skin system review: Negative for any recent abnormal bruising, no rash, no pruritus reported. Neurologic: No prior history of strokes, mini strokes, seizure disorder. Psychologic: No history of major psychosis or major depression reported. Musculoskeletal: Minor aches and pains reported. No acute joint swelling reported. Endocrine: No recent polyuria, polydipsia, recent heat or cold intolerance. Physical Exam Vital Signs: Temp Pulse Resp BP Pulse Ox 97.6 F 112 H 17 103/81 93 01/14/18 11:06 01/14/18 11:06 01/14/18 11:06 01/14/18 11:06 01/14/18 11:06 Intake & Output 01/13/18 01/14/18 01/15/18 06:59 06:59 06:59 Intake Total 320 Balance 320 Weight 68.4 kg Results Laboratory Results: 01/14/18 03:21 01/14/18 03:21 01/14/18 01/14/18 01/14/18 03:21 03:21 03:21 WBC 6.8 RBC 4.97 Hgb 10.6 L Hct 33.1 L MCV 67 L MCH 21.4 L MCHC 32.0 RDW 19.1 H Plt Count 85 L Sodium 141.2 Potassium 4.2 Chloride 115 H Carbon Dioxide 16 L Anion Gap 10 BUN 32 H Creatinine 1.40 H Est GFR ( Amer) 50 L Est GFR (Non-Af Amer) 41 L Glucose 128 H Calcium 8.4 Magnesium 2.2 Total Bilirubin 3.5 H AST 124 H ALT 94 H Alkaline Phosphatase 59 Total Protein 7.1 Albumin 2.7 L TSH 01/14/18 03:21 WBC RBC Hgb Hct MCV MCH MCHC RDW Plt Count Sodium Potassium Chloride Carbon Dioxide Anion Gap BUN Creatinine Est GFR ( Amer) Est GFR (Non-Af Amer) Glucose Calcium Magnesium Total Bilirubin AST ALT Alkaline Phosphatase Total Protein Albumin TSH 1.12 01/14/18 01/14/18 03:21 11:02 Troponin I 0.045 0.052 EKG Comments: Sinus tachycardia, left atrial abnormality and right ventricular hypertrophy Impressions: Chest X-Ray 01/13/18 13:37 IMPRESSION: CARDIAC ENLARGEMENT WITHOUT FAILURE. PROMINENCE OF THE MAIN PULMONARY ARTERY. THIS CAN BE SEEN WITH PULMONARY VALVE DISEASE. Abdomen Ultrasound 01/13/18 16:45 IMPRESSION: Somewhat limited study as noted above. No gallstones are identified. No dilated bile ducts are identified. There is questionable to and fro flow within the portal vein and the possibility of developing portal hypertension cannot be excluded. Other findings as noted above Chest/Abdomen CTA 01/13/18 18:50 IMPRESSION: 1. There is no evidence of pulmonary emboli. 2. There is a pericardial effusion. Assessment & Plan - Diagnosis (1) Congestive heart failure Qualifiers: Heart failure type: right-sided Heart failure chronicity: acute on chronic Qualified Code(s): I50.813 - Acute on chronic right heart failure Is this a current diagnosis for this admission?: Yes (2) Dyspnea on exertion Is this a current diagnosis for this admission?: Yes (3) Pericardial effusion Is this a current diagnosis for this admission?: Yes (4) Sinus tachycardia Is this a current diagnosis for this admission?: Yes (5) Swelling of both lower extremities Is this a current diagnosis for this admission?: Yes (6) Enlarged RV (right ventricle) Is this a current diagnosis for this admission?: Yes - Notes Notes: CT scan shows significant enlargement of the pulmonary artery and also significant enlargement of the right ventricle. IVC and hepatic veins are also noted to be somewhat dilated by my review. It seems patient has predominantly right-sided heart failure. However patient denies any history of congenital heart disease. Continue oxygenation with O2 supplementation, DVT prophylaxis Lovenox. All current evaluations were reviewed. Would recommend pulmonary consultation just to rule out any intrinsic pulmonary disease. Although chest x-ray and CT scan does not seem to suggest this. Patient will benefit from arterial blood gas etc., pulmonary function test with diffusion capacity. Patient will also need a VQ scan which will be ordered even though CTA was negative. At this point recommend diuresing patient. Will add digoxin, ROBBIE inhibitor, spironolactone as well as loop diuretics. 2D echocardiogram is still pending. Further plans after 2D echocardiogram. - Time Time Spent: 30 to 50 Minutes - CODE STATUS was discussed, patient remains full code. Surrogate decision-maker unchanged. Multiple medical problems were addressed. More than 50% of the time spent coordinating care, discussing management plans with involved caregivers. Management plans discussed with involved personnels. Medical decision making was of moderate to high complexity , patient's has multiple comorbidities. Medications reviewed and adjusted accordingly: Yes
[2018-01-14] MEDS: CARVEDILOL 3.125 MG TABLET PO SCH (21:26)
[2018-01-15 05:07] LABS: HEMATOCRIT 32.3 % (36.0-47.0); HEMOGLOBIN 10.1 g/dL (12.0-15.5); MEAN CORPUSCULAR HEMOGLOBIN 20.9 pg (27.0-33.4); MEAN CORPUSCULAR HGB CONC 31.2 g/dL (32.0-36.0); MEAN CORPUSCULAR VOLUME 67 fl (80-97); RED BLOOD COUNT 4.82 10^6/uL (3.72-5.28); WHITE BLOOD COUNT 6.6 10^3/uL (4.0-10.5)
[2018-01-15 05:11] LABS: ANION GAP 11 (5-19); BLOOD UREA NITROGEN 40 mg/dL (7-20); CALCIUM 8.4 mg/dL (8.4-10.2); CARBON DIOXIDE 16 mmol/L (22-30); CHLORIDE 111 mmol/L (98-107); GLUCOSE 92 mg/dL (75-110); POTASSIUM 4.6 mmol/L (3.6-5.0); SODIUM 138.2 mmol/L (137-145)
[2018-01-15 05:31] LABS: PLATELET COUNT 63 10^3/uL (150-450)
[2018-01-15 07:43] LABS: HEPATITIS A AB IGM Negative (Negative); HEPATITIS B CORE AB IGM Negative (Negative); HEPATITS B SURFACE ANTIGEN Negative (Negative)
[2018-01-15 07:59] LABS: HEPATITIS C VIRUS ANTIBODY 0.1 s/co ratio (0.0-0.9)
--- NOTE | 2018-01-15 09:09 | RADIOLOGY REPORT (SQ) ---
EXAM DESCRIPTION: CHEST PA/LAT COMPLETED DATE/TIME: 01/15/2018 8:54 am REASON FOR STUDY: SOB, PULM HTN ( PER PROTOCOL FOR NM VQ SCAN TODAY) COMPARISON: 01/13/2018 EXAM PARAMETERS: NUMBER OF VIEWS: two views TECHNIQUE: Digital Frontal and Lateral radiographic views of the chest acquired. RADIATION DOSE: NA LIMITATIONS: none FINDINGS: LUNGS AND PLEURA: No opacities, masses or pneumothorax. No pleural effusion. MEDIASTINUM AND HILAR STRUCTURES: No masses or contour abnormalities. HEART AND VASCULAR STRUCTURES: Cardiac silhouette remains enlarged and is unchanged in configuration BONES: No acute findings. HARDWARE: None in the chest. OTHER: No other significant finding. IMPRESSION: No significant interval change. Cardiomegaly. No acute consolidations are identified. TECHNICAL DOCUMENTATION: JOB ID: [id number] [employer]- All Rights Reserved Reading location - IP/workstation name: [email or web address]
--- NOTE | 2018-01-15 09:18 | RADIOLOGY REPORT (SQ) ---
EXAM DESCRIPTION: NM LUNG VENT/PERF SCAN COMPLETED DATE/TIME: 01/15/2018 9:04 am REASON FOR STUDY: Pulm HTN COMPARISON: CTA of the chest dated 01/13/2018 and chest x-ray dated 01/15/2018 RADIONUCLIDE AND DOSE: 4.6 millicuries TC-99m MAA Intravenous 30.3 millicuries TC-99m DTPA Inhaled aerosol TECHNIQUE: Eight views of the lungs acquired post ventilation of DTPA aerosol. Eight matching views of the lungs acquired following injection of MAA. LIMITATIONS: None. FINDINGS: VENTILATION: Symmetric and homogeneous distribution of DTPA aerosol during ventilatory pha se. No significant areas of photopenia. PERFUSION: Perfusion images with normal homogenous activity and no wedge-shaped or segmental defects. No ventilation-perfusion mismatches. OTHER: No other significant finding. IMPRESSION: NORMAL VENTILATION-PERFUSION LUNG SCAN. NEGATIVE FOR PULMONARY EMBOLI. TECHNICAL DOCUMENTATION: JOB ID: [id number] [employer]- All Rights Reserved Reading location - IP/workstation name: [email or web address]
[2018-01-15] MEDS ORDERED: FUROSEMIDE 20 MG TABLET PO SCH (10:00)
[2018-01-15] MEDS ORDERED: DIGOXIN 0.125 MG TABLET PO SCH (10:00)
[2018-01-15] MEDS ORDERED: SPIRONOLACTONE 25 MG TABLET PO SCH (10:00)
[2018-01-15] MEDS: CARVEDILOL 3.125 MG TABLET PO SCH (10:46)
[2018-01-15] MEDS: BUDESONIDE/FORMOTEROL 160-4.5 MCG 60 PUFF/6 GM MDI IH SCH (10:47)
--- NOTE | 2018-01-15 13:26 | XCELERA REPORT ---
[address] [address] Transthoracic Echocardiogram Report Name: JUANITA SHARIF Age: 42 yrs Gender: Female : 1975 Patient Status: Inpatient Patient Location: [address] [place] [address] Study Date: 01/15/2018 09:05 AM Height: 63 in Weight: 150 lb BSA: 1.7 m2 Procedure: A complete two-dimensional transthoracic echocardiogram was performed (2D, M-mode, spectral and color flow Doppler). The study was technically adequate with some images being suboptimal in quality. Reason For Study: CHF Ordering Physician: MAURY CARMONA Performed By: Shoaib Castillo Interpretation Summary The left ventricular ejection fraction is normal. There is normal left ventricular wall thickness. Doppler measurements suggest pseudonormalized left ventricular relaxation, which is associated with grade II/IV or mild to moderate diastolic dysfunction The left ventricular cavity is small. Wall motion cannot be accurately commented on, but no definite regional wall motion abnormalities noted. The right ventricular systolic function is moderately reduced. The right ventricle is severely dilated. The right atrium is severely dilated. The left atrium is small. There is no mitral regurgitation noted. There is no mitral valve stenosis. No aortic regurgitation is present. There is no aortic valve stenosis There is a moderate amount of tricuspid regurgitation There is servere pulmonary hypertension by echo The aortic root is not well visualized. The inferior vena cava appeared normal and decreased < 50% with respiration (RAP 10-15 mmHg) Small pericardial effusion. MMode/2D Measurements & Calculations RVDd: 4.9 cm LVIDd: 2.1 cm FS: 33.5 % Ao root diam: 2.4 cm IVSd: 0.98 cm LVIDs: 1.4 cm EDV(Teich): 13.6 ml LVPWd: 0.91 cm ESV(Teich): 4.7 ml Ao root area: 4.6 cm2 EF(Teich): 65.2 % LA dimension: 1.5 cm Doppler Measurements & Calculations MV E max ngozi: MV P1/2t max ngozi: Ao V2 max: LV V1 max P.4 cm/sec 45.9 cm/sec 96.2 cm/sec 3.0 mmHg MV A max ngozi: MV P1/2t: 40.1 msec Ao max PG: LV V1 max: 59.7 cm/sec 3.7 mmHg 85.9 cm/sec MV E/A: 0.76 MVA(P1/2t): 5.5 cm2 MV dec slope: 335.7 cm/sec2 PA V2 max: PI end-d ngozi: TR max ngozi: 63.2 cm/sec 261.8 cm/sec 488.7 cm/sec PA max PG: TR max P.6 mmHg 95.5 mmHg Left Ventricle The left ventricular cavity is small. There is normal left ventricular wall thickness. The left ventricular ejection fraction is normal. Doppler measurements suggest pseudonormalized left ventricular relaxation, which is associated with grade II/IV or mild to moderate diastolic dysfunction. Wall motion cannot be accurately commented on, but no definite regional wall motion abnormalities noted. Right Ventricle The right ventricle is severely dilated. The right ventricle appears to be hypertrophied. The right ventricular systolic function is moderately reduced. Atria The right atrium is severely dilated. The left atrium is small. Mitral Valve The mitral valve is grossly normal. There is no mitral valve stenosis. There is no mitral regurgitation noted. Aortic Valve The aortic valve is trileaflet. There is no aortic valve stenosis. No aortic regurgitation is present. Tricuspid Valve Tricuspid leaflets are thickened. There is no tricuspid stenosis. There is a moderate amount of tricuspid regurgitation. There is servere pulmonary hypertension by echo. Pulmonic Valve The pulmonic valve is not well visualized. Great Vessels The aortic root is not well visualized. The inferior vena cava appeared normal and decreased < 50% with respiration (RAP 10-15 mmHg). Effusions Small pericardial effusion. : MAURY CARMONA > Randee Larkin
[2018-01-15] MEDS ORDERED: ONDANSETRON HCL INJ/PF 4 MG/2 ML SDV IV PRN (14:32)
--- NOTE | 2018-01-15 14:52 | PDOC TRANSFER SUMMARY ---
General Admission Date/PCP: 01/13/18 22:00 MILKA KITCHEN MD Resuscitation Status: Full Code - Transfer Diagnosis (1) Acute combined systolic and diastolic congestive heart failure Is this a current diagnosis for this admission?: Yes (2) Pulmonary hypertension Is this a current diagnosis for this admission?: Yes (3) Pericardial effusion Is this a current diagnosis for this admission?: Yes (4) Pulmonary nodule Is this a current diagnosis for this admission?: Yes (5) Sinus tachycardia Is this a current diagnosis for this admission?: Yes (6) Elevated transaminase level Is this a current diagnosis for this admission?: Yes (7) Acute kidney injury Is this a current diagnosis for this admission?: Yes - Transfer Medications Home Medications: Albuterol Sulfate [Albuterol Sulfate 2.5mg/3 mL] 3 ml IH RTQ8HP PRN 01/14/18 Albuterol Sulfate [Proair Respiclick] 2 puff IH Q3 01/14/18 Beclomethasone Dipropionate [Qvar] 1 inh IH BID PRN 01/14/18 Hydroxyzine HCl [Atarax 25 mg Tablet] 25 mg PO DAILY 01/14/18 Triamcinolone Acetonide [Aristocort 0.1% Ointment 15 gm] 1 applic TP DAILY 01/14 Transfer Medications: Current Medications Acetaminophen (Tylenol 325 Mg Tablet) 650 mg PO Q4HP PRN PRN Reason: fever, headache, pain Stop: 02/12/18 21:56 Last Admin: 01/14/18 10:17 Dose: 650 mg Albuterol (Ventolin 0.083% Neb 2.5 Mg/3 Ml Ampul) 2.5 mg NEB RTQ4HP PRN PRN Reason: SHORTNESS OF BREATH Stop: 02/12/18 21:56 Last Admin: 01/14/18 04:01 Dose: 2.5 mg Budesonide/Formoterol Fumarate (Symbicort Hfa 160-4.5 Mcg Inhaler 6 Gm) 2 puff IH Q12 MARY Stop: 02/13/18 09:59 Last Admin: 01/15/18 10:47 Dose: 2 puff Carvedilol (Coreg 3.125 Mg Tablet) 3.125 mg PO Q12 MARY Stop: 02/13/18 21:59 Last Admin: 01/15/18 10:46 Dose: 3.125 mg Digoxin (Lanoxin 0.125 Mg Tablet) 0.125 mg PO DAILY MARY Stop: 02/14/18 09:59 Last Admin: 01/15/18 10:46 Dose: 0.125 mg Guaifenesin (Robitussin Syrup 200 Mg/10 Ml Ud Cup) 200 mg PO Q4HP PRN PRN Reason: COUGH Stop: 02/13/18 10:43 Last Admin: 01/14/18 21:26 Dose: 200 mg Ondansetron HCl (Zofran Inj/Pf 4 Mg/2 Ml Sdv) 4 mg IV Q6HP PRN PRN Reason: FOR NAUSEA/VOMITING Stop: 02/14/18 14:31 Spironolactone (Aldactone 25 Mg Tablet) 25 mg PO DAILY MARY Stop: 02/14/18 09:59 Last Admin: 01/15/18 10:47 Dose: 25 mg - Allergies Allergies/Adverse Reactions: amoxicillin Allergy (Verified 01/13/18 11:48) ciprofloxacin [From Cipro] Adverse Reaction (Verified 01/14/18 02:45) Nausea Hospital Course Hospital Course: History of Present Illness: Per H&P by Dr. Rowan: JUANITA SHARIF is a 42 year old female of asthma and GERD was admitted with above-mentioned complaints. According to the patient, she started having chronic cough about 6 months ago so she was referred to pulmonology. She was diagnosed with asthma and was started on Q-pearl twice daily and rescue inhaler with improvement in her symptoms. However, she was unable to afford it for some time so she was switched to a different inhaler with worsening of her symptoms. She is finally back on Qvar with rescue inhaler. But despite adequate asthma treatment, she was having worsening dyspnea on exertion since October 2017 (especially last month ago). She said that she feels mucus buildup and subsequent nausea. She sometimes would vomit and sometimes she would have dry heaves which prevents her from having a good appetite. She also had left ankle swelling for about 6 weeks and bilateral leg swelling for the last 2 weeks. She has 3 pillow orthopnea and PND and her exercise tolerance is very limited by her shortness of breath. She denies any chest pain per se but complains of palpitations, no diaphoresis or syncope. She apparently was seen at her PCPs office last week where a chest x-ray was done. She was referred to see cardiology on 02/05/2018. However, since her symptoms are persistent and worsening, she decided to come to the hospital for further management and treatment. In the ED, her temperature was 98.1, heart rate 129, respiratory rate 15, blood pressure 116/90 with oxygen saturation of 100% on room air. Her WBC was 6.3 and her hemoglobin was 11.2. Her initial troponin was 0.031 with a proBNP of 7290. A chest x-ray was done which showed cardiomegaly without failure and prominent main pulmonary arteries which could be seen in pulmonary valve disease. A CAT scan angiogram of the chest was done which showed no PE but she had small pericardial effusion and 7 mm subpleural nodule on the right side. She received 40 mg IV Lasix 1 with no significant improvement in her breathing. Hospital Course: The patient was admitted on 01/13/18 for complaint of dyspnea and bilateral lower leg edema that has gradually worsening over the last several months. Chest x-ray revealed cardiomegaly with prominence of the main pulmonary artery. CTA of the chest demonstrated a 7 mm subpleural nodule to the right lung, a 10 mm pericardial effusion, without evidence of pulmonary emboli. Cardiology was consulted and placed the patient on coreg, digoxin, and spironolactone. Echocardiogram demonstrated a normal left ventricular ejection fraction, mild to moderate diastolic dysfunction, small ventricle cavity. The right ventricle and right atrium were noted to be severely dilated, the left atrium is small. There is also severe pulmonary hypertension by echocardiogram. Cardiology has recommended that the patient be transferred to a tertiary care center for a right heart catheterization. Dr. Dejesus, cardiology, at [facility] has agreed to be consulted on the patient when she arrives to their facility. Dr. Muller, with the hospitalist service, has graciously accepted this patient. At this time, the patient is in stable condition. Her only complaints are fatigue and continued bilateral lower leg edema. Physical Exam Vital Signs: Temp Pulse Resp BP Pulse Ox 98.2 F 101 H 16 108/65 97 01/15/18 11:45 01/15/18 11:45 01/15/18 11:45 01/15/18 11:45 01/15/18 11:45 Intake & Output 03/13/18 03/14/18 03/15/18 06:59 06:59 06:59 Intake Total 320 485 Output Total 300 Balance 320 185 Weight 68.4 kg 69.3 kg General appearance: PRESENT: no acute distress, cooperative, well-developed, well-nourished, other - Overweight Head exam: PRESENT: atraumatic, normocephalic Eye exam: PRESENT: conjunctiva pink, EOMI, PERRLA. ABSENT: scleral icterus Ear exam: PRESENT: normal external ear exam Mouth exam: PRESENT: moist, tongue midline Neck exam: ABSENT: carotid bruit, JVD, lymphadenopathy, thyromegaly Respiratory exam: PRESENT: clear to auscultation bakari, symmetrical, unlabored. ABSENT: rales, rhonchi, wheezes Cardiovascular exam: PRESENT: RRR, +S1, +S2. ABSENT: diastolic murmur, rubs, systolic murmur Pulses: PRESENT: normal dorsalis pedis pul Vascular exam: PRESENT: normal capillary refill GI/Abdominal exam: PRESENT: normal bowel sounds, soft. ABSENT: distended, guarding, mass, organolmegaly, rebound, tenderness Rectal exam: PRESENT: deferred Extremities exam: PRESENT: full ROM, +1 edema - Nonpitting, bilateral lower extremities. ABSENT: calf tenderness, clubbing, pedal edema Neurological exam: PRESENT: alert, awake, oriented to person, oriented to place , oriented to time, oriented to situation, CN II-XII grossly intact. ABSENT: motor sensory deficit Psychiatric exam: PRESENT: appropriate affect, normal mood. ABSENT: homicidal ideation, suicidal ideation Skin exam: PRESENT: dry, intact, warm. ABSENT: cyanosis, rash Results Laboratory Results: 01/15/18 03:48 01/15/18 03:48 01/15/18 01/15/18 03:48 03:48 WBC 6.6 RBC 4.82 Hgb 10.1 L Hct 32.3 L MCV 67 L MCH 20.9 L MCHC 31.2 L RDW 19.0 H Plt Count 63 L Sodium 138.2 Potassium 4.6 Chloride 111 H Carbon Dioxide 16 L Anion Gap 11 BUN 40 H Creatinine 1.38 H Est GFR ( Amer) 51 L Est GFR (Non-Af Amer) 42 L Glucose 92 Calcium 8.4 01/14/18 01/14/18 01/14/18 03:21 11:02 17:50 Troponin I 0.045 0.052 0.068 Impressions: Abdomen Ultrasound 01/13/18 16:45 IMPRESSION: Somewhat limited study as noted above. No gallstones are identified. No dilated bile ducts are identified. There is questionable to and fro flow within the portal vein and the possibility of developing portal hypertension cannot be excluded. Other findings as noted above Chest/Abdomen CTA 01/13/18 18:50 IMPRESSION: 1. There is no evidence of pulmonary emboli. 2. There is a pericardial effusion. Chest X-Ray 01/15/18 00:00 IMPRESSION: No significant interval change. Cardiomegaly. No acute consolidations are identified. Lung Scan-VQ NM 01/15/18 00:00 IMPRESSION: NORMAL VENTILATION-PERFUSION LUNG SCAN. NEGATIVE FOR PULMONARY EMBOLI. Plan Discharge Plan: The patient will be transferred to [facility] under the care of Dr. Muller. Time Spent: Less than 30 Minutes
[2018-01-15 16:07] VITALS: BP 104/78
[2018-01-15] MEDS: ACETAMINOPHEN 325 MG TABLET PO PRN (17:14)
--- NOTE | 2018-01-15 19:31 | PDOC PROGRESS REPORT ---
Subjective Progress Note for:: 01/15/18 Subjective:: Patient seems to be doing better with gradual improvement. Patient still has shortness of breath on minimal to mild exertion. Leg edema has improved. Pt is denying any chest arm or neck discomfort. Patient denying any PND, orthopnea. Patient denied any sustained palpitations, dizziness, syncope, near syncope. Patient denying any fever chills. Patient denying any other significant discomfort. Patient is maintaining sinus rhythm. Review of systems: Rest review of systems negative. Medications: Medications have been reviewed. Reason For Visit: CHF EXACERBATION Physical Exam Vital Signs: Temp Pulse Resp BP Pulse Ox 97.5 F 99 15 104/78 100 01/15/18 16:00 01/15/18 16:25 01/15/18 16:25 01/15/18 16:00 01/15/18 16:00 Intake & Output 01/14/18 01/15/18 01/16/18 06:59 06:59 06:59 Intake Total 320 485 Output Total 300 Balance 320 185 Weight 68.4 kg 69.3 kg Exam: GENERAL: well-nourished and in no acute distress. Alert and oriented x3 HEAD: Atraumatic, normocephalic. EYES: Pupils equal round and reactive to light, extraocular movements intact, sclera anicteric, conjunctiva are normal. ENT: TMs normal, nares patent, oropharynx clear without exudates. Moist mucous membranes. No oral ulcerations or bleeding gums noted NECK: supple without lymphadenopathy. Trachea is central. No cervical or axillary lymphadenopathy noted. Carotids are 2+, JVD 8-10 cm LUNGS: Respiration seems nonlabored, no significant accessory muscle action noted. Breath sounds clear to auscultation bilaterally and equal noted. No wheezes rales or rhonchi noted. No significant dullness noted on percussion. CHEST: Palpation of the chest wall shows no significant chest wall tenderness. No other significant abnormalities noted. HEART: [place] WAISTLINE JOINER LOCKSTITCH, No PSH, 1/6 DAJA aortic area, 1/6 noe systolic murmur mitral area, no rubs, no gallops. ABDOMEN: Soft, no significant tenderness appreciated, normoactive bowel sounds. No guarding, no rebound. No rigidity noted . No masses appreciated. Mild liver enlargement appreciated. EXTREMITIES: Pedal pulses are 1-2+, no calf tenderness noted. No clubbing or cyanosis.1+ pedal edema noted NEUROLOGICAL: Focused neurological exam showed no significant neurologic deficit. Normal speech, no focal weakness appreciated. PSYCH: Normal mood, normal affect. Judgment and insight within normal limits. SKIN: No significant ecchymosis, skin is noted to be warm. MUSCULOSKELETAL EXAM: No significant acute joint swelling noted. Results Laboratory Results: 01/15/18 03:48 01/15/18 03:48 01/15/18 01/15/18 03:48 03:48 WBC 6.6 RBC 4.82 Hgb 10.1 L Hct 32.3 L MCV 67 L MCH 20.9 L MCHC 31.2 L RDW 19.0 H Plt Count 63 L Sodium 138.2 Potassium 4.6 Chloride 111 H Carbon Dioxide 16 L Anion Gap 11 BUN 40 H Creatinine 1.38 H Est GFR ( Amer) 51 L Est GFR (Non-Af Amer) 42 L Glucose 92 Calcium 8.4 01/14/18 01/14/18 01/14/18 03:21 11:02 17:50 Troponin I 0.045 0.052 0.068 EKG Comments: Telemetry shows sinus rhythm with mild sinus tachycardia. No sustained tachycardia or bradycardia noted. Impressions: Abdomen Ultrasound 01/13/18 16:45 IMPRESSION: Somewhat limited study as noted above. No gallstones are identified. No dilated bile ducts are identified. There is questionable to and fro flow within the portal vein and the possibility of developing portal hypertension cannot be excluded. Other findings as noted above Chest/Abdomen CTA 01/13/18 18:50 IMPRESSION: 1. There is no evidence of pulmonary emboli. 2. There is a pericardial effusion. Chest X-Ray 01/15/18 00:00 IMPRESSION: No significant interval change. Cardiomegaly. No acute consolidations are identified. Lung Scan-VQ NM 01/15/18 00:00 IMPRESSION: NORMAL VENTILATION-PERFUSION LUNG SCAN. NEGATIVE FOR PULMONARY EMBOLI. Assessment & Plan - Diagnosis (1) Congestive heart failure Qualifiers: Heart failure type: right-sided Heart failure chronicity: acute on chronic Qualified Code(s): I50.813 - Acute on chronic right heart failure Is this a current diagnosis for this admission?: Yes (2) Dyspnea on exertion Is this a current diagnosis for this admission?: Yes (3) Pericardial effusion Is this a current diagnosis for this admission?: Yes (4) Sinus tachycardia Is this a current diagnosis for this admission?: Yes (5) Swelling of both lower extremities Is this a current diagnosis for this admission?: Yes (6) Enlarged RV (right ventricle) Is this a current diagnosis for this admission?: Yes - Notes Notes: Patient was seen multiple times. In the morning, echo was still pending. When echocardiogram was performed, I went and talked with patient. Patient was noted to have severe pulmonary hypertension with severe enlargement of the right ventricle and significant right ventricular systolic dysfunction was noted. LV cavity was noted to be a small. No significant valvular abnormalities noted except for moderate tricuspid regurgitation. It was felt that patient will benefit from a right heart catheterization, left heart catheterization and also evaluation for management to response to various agents for pulmonary hypertension. Patient did earlier had a VQ scan which was noted to be negative. It is felt that patient most likely has primary pulmonary hypertension. It was felt that patient will benefit from tertiary care transfer for further assessment and management. In this regard she chose to go to [facility]. This transfer was arranged. I did stop patient's Lasix as I am worried that it may decrease RV output further and to reduce LV output further and cause spiraling down of the blood pressure. Overall prognosis is guarded. - Time Time with patient: Greater than 35 minutes - CODE STATUS was discussed, patient remains full code. Surrogate decision-maker unchanged. Multiple medical problems were addressed. More than 50% of the time spent coordinating care, discussing management plans with involved caregivers. Management plans discussed with involved personnels. Medical decision making was of moderate to high complexity, patient's has multiple comorbidities. Medications reviewed and adjusted accordingly: Yes
--- NOTE | 2018-01-15 20:29 | PDOC CONSULTATION ---
Consultation Consult Date: 01/15/18 Attending physician:: ENRIQUE WINTER Consult reason:: dysnea History of Present Illness Admission Date/PCP: 01/13/18 22:00 MILKA KITCHEN MD History of Present Illness: JUANITA SHARIF is a 42 year old female of asthma and GERD was admitted with above-mentioned complaints. According to the patient, she started having chronic cough about 6 months ago so she was referred to pulmonology. She was diagnosed with asthma and was started on Q-pearl twice daily and rescue inhaler with improvement in her symptoms. However, she was unable to afford it for some time so she was switched to a different inhaler with worsening of her symptoms. She is finally back on Qvar with rescue inhaler. But despite adequate asthma treatment, she was having worsening dyspnea on exertion since October 2017 ( especially last month ago). She said that she feels mucus buildup and subsequent nausea. She sometimes would vomit and sometimes she would have dry heaves which prevents her from having a good appetite. She also had left ankle swelling for about 6 weeks and bilateral leg swelling for the last 2 weeks. She has 3 pillow orthopnea and PND and her exercise tolerance is very limited by her shortness of breath. She denies any chest pain per se but complains of palpitations, no diaphoresis or syncope. Past Medical History Pulmonary Medical History: Reports: Asthma, Bronchitis GI Medical History: Reports: Gastroesophageal Reflux Disease Past Surgical History Past Surgical History: Reports: Other - Adenoidectomy and 1. Social History Information Source: [facility] Records Smoking Status: Never Smoker Frequency of Alcohol Use: None Hx Recreational Drug Use: No Drugs: None Hx Prescription Drug Abuse: No - Advance Directive Resuscitation Status: Full Code Family History Parental Family History Reviewed: No Children Family History Reviewed: No Sibling(s) Family History Reviewed.: No Medication/Allergy Home Medications: Albuterol Sulfate [Albuterol Sulfate 2.5mg/3 mL] 3 ml IH RTQ8HP PRN 01/14/18 Albuterol Sulfate [Proair Respiclick] 2 puff IH Q3 01/14/18 Beclomethasone Dipropionate [Qvar] 1 inh IH BID PRN 01/14/18 Hydroxyzine HCl [Atarax 25 mg Tablet] 25 mg PO DAILY 01/14/18 Triamcinolone Acetonide [Aristocort 0.1% Ointment 15 gm] 1 applic TP DAILY 01/14 Allergies/Adverse Reactions: amoxicillin Allergy (Verified 01/13/18 11:48) ciprofloxacin [From Cipro] Adverse Reaction (Verified 01/14/18 02:45) Nausea Review of Systems Constitutional: PRESENT: fatigue, weakness. ABSENT: anorexia, chills, fever(s) , headache(s), night sweats Eyes: PRESENT: visual disturbances Ears: PRESENT: hearing changes Nose, Mouth, and Throat: PRESENT: mouth pain, sore throat Cardiovascular: PRESENT: dyspnea on exertion. ABSENT: palpitations Respiratory: ABSENT: hemoptysis Gastrointestinal: PRESENT: nausea. ABSENT: abdominal pain, coffee ground emesis , dysphagia, heartburn, hematemesis, hematochezia, melena Genitourinary: PRESENT: dysuria, hematuria Musculoskeletal: PRESENT: deformity, joint swelling Integumentary: PRESENT: pruritus, rash Neurological: PRESENT: abnormal movements, abnormal speech, confusion, focal weakness, frequent falls, lack of coordination, memory loss. ABSENT: restless legs Psychiatric: ABSENT: hallucinations, homidical ideation, suicidal ideation Endocrine: ABSENT: cold intolerance, heat intolerance, menstrual abnormalities Hematologic/Lymphatic: ABSENT: lymphadenopathy Physical Exam Vital Signs: Temp Pulse Resp BP Pulse Ox 97.3 F 100 16 118/73 100 01/15/18 07:37 01/15/18 07:37 01/15/18 07:37 01/15/18 07:37 01/15/18 07:37 Intake & Output 01/14/18 01/15/18 01/16/18 06:59 06:59 06:59 Intake Total 320 485 Output Total 300 Balance 320 185 Weight 68.4 kg 69.3 kg General appearance: PRESENT: no acute distress, cooperative, disheveled, well- developed, well-nourished Head exam: PRESENT: atraumatic, normocephalic Eye exam: PRESENT: conjunctiva pale, EOMI. ABSENT: nystagmus, periorbital swelling, scleral icterus Mouth exam: PRESENT: dry mucosa, neck supple, tongue midline Neck exam: ABSENT: carotid bruit, JVD, lymphadenopathy, thyromegaly, tracheal deviation, tracheostomy Respiratory exam: PRESENT: decreased breath sounds, prolonged expiratory phas, rhonchi, symmetrical, unlabored, wheezes. ABSENT: rales, retraction, stridor, tachypnea Cardiovascular exam: PRESENT: RRR, +S1, +S2 Pulses: PRESENT: normal radial pulses GI/Abdominal exam: PRESENT: diminished bowel sounds, soft Extremities exam: ABSENT: calf tenderness, clubbing, joint swelling Musculoskeletal exam: ABSENT: deformity, dislocation Neurological exam: PRESENT: awake Psychiatric exam: PRESENT: flat affect Skin exam: PRESENT: dry, warm Results Laboratory Results: 01/15/18 03:48 01/15/18 03:48 01/15/18 01/15/18 03:48 03:48 WBC 6.6 RBC 4.82 Hgb 10.1 L Hct 32.3 L MCV 67 L MCH 20.9 L MCHC 31.2 L RDW 19.0 H Plt Count 63 L Sodium 138.2 Potassium 4.6 Chloride 111 H Carbon Dioxide 16 L Anion Gap 11 BUN 40 H Creatinine 1.38 H Est GFR ( Amer) 51 L Est GFR (Non-Af Amer) 42 L Glucose 92 Calcium 8.4 01/14/18 01/14/18 01/14/18 03:21 11:02 17:50 Troponin I 0.045 0.052 0.068 Impressions: Abdomen Ultrasound 01/13/18 16:45 IMPRESSION: Somewhat limited study as noted above. No gallstones are identified. No dilated bile ducts are identified. There is questionable to and fro flow within the portal vein and the possibility of developing portal hypertension cannot be excluded. Other findings as noted above Chest/Abdomen CTA 01/13/18 18:50 IMPRESSION: 1. There is no evidence of pulmonary emboli. 2. There is a pericardial effusion. Chest X-Ray 01/15/18 00:00 IMPRESSION: No significant interval change. Cardiomegaly. No acute consolidations are identified. Lung Scan-VQ NM 01/15/18 00:00 IMPRESSION: NORMAL VENTILATION-PERFUSION LUNG SCAN. NEGATIVE FOR PULMONARY EMBOLI. Assessment & Plan - Diagnosis (1) Asthma Qualifiers: Asthma severity: unspecified severity Asthma persistence: unspecified Asthma complication type: unspecified Qualified Code(s): J45.909 - Unspecified asthma, uncomplicated Is this a current diagnosis for this admission?: Yes Plan: improving add ICCS +Singular (2) Congestive heart failure Qualifiers: Heart failure type: right-sided Heart failure chronicity: acute on chronic Qualified Code(s): I50.813 - Acute on chronic right heart failure Is this a current diagnosis for this admission?: Yes Plan: chroonic (3) Dyspnea on exertion Is this a current diagnosis for this admission?: Yes Plan: multi factorial P HTN+asthma+CHF (4) Pulmonary hypertension Is this a current diagnosis for this admission?: Yes Plan: needs R heart cath
== END 2018-01-15 18:11 | disposition short-term general hospital (02) | DRG 292 ==
LOC: ER 11:44 → EH 22:00 → 5 01-14 00:15
PROVIDERS: ADMIT Internal Medicine Geriatric Medicine; ATTEND Internal Medicine Geriatric Medicine
DX: I11.0 Hypertensive heart disease with heart failure (principal); I31.3 Pericardial effusion (noninflammatory); N17.9 Acute kidney failure, unspecified; I27.20 Pulmonary hypertension, unspecified; I50.43 Acute on chronic combined systolic (congestive) and diastolic (congestive) heart failure; R91.1 Solitary pulmonary nodule; K21.9 Gastro-esophageal reflux disease without esophagitis; J45.909 Unspecified asthma, uncomplicated; R00.0 Tachycardia, unspecified; Z79.899 Other long term (current) drug therapy; Z88.1 Allergy status to other antibiotic agents
CPT/HCPCS: 36415; 71046; 71275; 76705; 78582; 80048; 80053; 80074; 81001; 81025; 82550; 82553; 83690; 83735; 83880; 84443; 84484; 84703; 85025; 85027; 93005; 93010; 93306; 94640; 96374; 96375; 99285; A9540; A9567; J1940; J2405; J2550; J3490; Q9969